=== PATIENT | female | born 1995 | race African-American/Black ===

== ENCOUNTER 2016-12-04 19:20 | Emergency (ER) | payer SELFPAY ==
[~2016-12-04] VITALS: Ht 160 cm; Wt 56.7 kg
[2016-12-04 19:20] VITALS: BP 129/76
[~2016-12-04 19:20] MED LIST: AMOX875T PO
[2016-12-04] MEDS ORDERED: LIDOCAINE/EPI/TETRACAINE TOPICAL GEL 3 ML. TP ONE ×2 (19:45)
[2016-12-04] MEDS ORDERED: LIDOCAINE 2%/EPI 1:100,000 20 ML VIAL. IJ ONE ×3 (19:45)
[2016-12-04] MEDS ORDERED: TRAM-48 PO (22:17)
--- NOTE | 2016-12-04 22:17 | PHYS DOC ---
Past Medical History Past Medical History: Migraines Past Surgical History: No Surgical History Alcohol Use: Occasionally Drug Use: Marijuana Adult General Chief Complaint Chief Complaint: LACERATION/AVULSION HPI HPI Patient is a 21 year old female who presents with right forearm laceration after punching a mirror during an ulceration with her partner. Review of Systems Review of Systems Constitutional: Denies fever or chills [] Musculoskeletal: Denies back pain or joint pain [] Integument: right forearm laceration Neurologic: Denies headache, focal weakness or sensory changes [] Current Medications Current Medications Current Medications Medications (Trade) Dose Ordered Sig/Dwight Start Time Stop Time Status Last Admin Dose Admin Diphtheria/ Tetanus/Acell Pertussis (Boostrix) 0.5 ml ONCE ONCE 12/04/16 22:30 12/04/16 22:31 Lidocaine/ Epinephrine (Let Topical) 3 ml 1X ONCE 12/04/16 19:45 12/04/16 19:51 DC 12/04/16 19:45 3 ML Lidocaine/ Epinephrine (Xylocaine 2%-Epi 1:100,000) 20 ml 1X ONCE 12/04/16 19:45 12/04/16 19:51 DC 12/04/16 19:45 20 ML Allergies Allergies Allergies Coded Allergies Type Severity Reaction Last Updated Verified No Known Drug Allergies 04/14/16 No Physical Exam Physical Exam Constitutional: Well developed, well nourished, no acute distress, non-toxic appearance. [] Skin: Right wrist ventral aspect with a laceration approximately 2X05 cm long, no obvious tendon involvement, right proximal ventral forearm with another laceration 9 cm x 4 cm wide, there is no obvious tendon involvement, right proximal dorsal forearm with another laceration 5 x 3 cm long, there is no obvious tendon involvement, full range of motion to the right forearm. Adequate radial medial and ulnar sensation to the right forearm. +2 right radial pulse. Cap refill less than 2 seconds the right fingers. Back: No tenderness, no CVA tenderness. [] Extremities: No tenderness, no cyanosis, no clubbing, ROM intact, no edema. [] Neurologic: Alert and oriented X 3, normal motor function, normal sensory function, no focal deficits noted. [] Psychologic: Affect normal, judgement normal, mood normal. [] Current Patient Data Vital Signs Vital Signs Date Time Temp Pulse Resp B/P (MAP) Pulse Ox O2 Delivery O2 Flow Rate FiO2 12/04/16 19:20 98.9 74 20 129/76 (93) 100 Room Air 98.9 EKG EKG [] Radiology/Procedures Radiology/Procedures Indication: Right forearm lacerations Procedure: The patient was placed in the appropriate position and anesthesia around the LET solution and later 2% of lidocaine with epinephrine, the wounds were explored for foreign objects, a couple glass pieces were removed from the laceration sites. The lacerations were cleaned with 500 ML of normal saline and Betadine. There were closed as follows 2 cm right wrist laceration- inner laceration was closed with 2 interrupted sutures using 3. 0 Vicryl, the exterior laceration was closed with 2 interrupted sutures using 4. 0 Prolene. 9 x 4 cm laceration on the right ventral proximal forearm- inner laceration was closed with 3 interrupted sutures using 3. 0 Vicryl, exterior laceration was closed with 19 interrupted sutures using 4. 0 Prolene. 5 x 3 cm laceration on the dorsal proximal forearm- inner laceration was closed with 3 interrupted sutures using 3. 0 Vicryl, exterior laceration was closed with 11 interrupted sutures using 4. 0 Prolene and Ethilon. All the wounds were covered with nonstick dressing and gauze. Patient tolerated the procedure very well. Course & Med Decision Making Course & Med Decision Making Pertinent Labs and Imaging studies reviewed. (See chart for details) Patient has multiple right forearm lacerations that were closed by me as noted in procedures. Wound care instructions as well as return precautions provided. Tetanus updated. Follow-up with the ED PCP in 7-10 days for suture. Right forearm x-rays interpreted by Dr. Fernandez were negative for any acute findings. Dragon Disclaimer Dragon Disclaimer This electronic medical record was generated, in whole or in part, using a voice recognition dictation system. Departure Departure Impression: Primary Impression: Laceration of right forearm Disposition: 01 HOME, SELF-CARE Condition: STABLE Referrals: NO PCP (PCP) Follow up with the primary care doctor or the emergency room in 7-10 days for suture removal Patient Instructions: Laceration Care, Adult Additional Instructions: You were seen with the right forearm laceration. Keep the area clean and dry. You can shower. Apply Neosporin to the laceration sites twice a day. Keep them covered if bleeding otherwise leave them open to air. Monitor the area for signs and symptoms of infection including but not limited to increased redness warmth yellow drainage from the area and return to the ED if they occur or see your own doctor. Come back to the emergency room or follow-up with your doctor in 7-10 days for stitches removal. Scripts Tramadol Hcl (ULTRAM) 50 Mg Tablet 1 TAB PO Q6HRS, #30 TAB Prov: ZANA DIAZ APRN 12/04/16 Problem Qualifiers Primary Impression: Laceration of right forearm Encounter type: initial encounter Qualified Codes: S51.811A - Laceration without foreign body of right forearm, initial encounter ZANA DIAZ APRN Dec 04, 2016 22:17
[2016-12-04] MEDS ORDERED: DIPHTH,PERTUSS(ACELL),TET TOX 0.5 ML DISP.SYRIN. VAX IM ONE (22:30)
--- NOTE | 2016-12-05 09:00 | RAD ---
Examination: 2 views of the right forearm History: History of lacerations after punching a glass Comparison: None available Findings The alignment of the radius, ulna grossly appears unremarkable. No obvious acute fracture identified. No obvious radiopaque foreign body is identified. Probable lacerations identified in the distal volar and proximal forearm region. Impression: 1. No acute osseous findings. 2. Probable lacerations identified in the distal volar and proximal forearm region.
== END 2016-12-04 22:25 | disposition home or self-care (01) ==
LOC: ER 20:20
DX: S51.811A Laceration without foreign body of right forearm, initial encounter (principal); G43.909 Migraine, unspecified, not intractable, without status migrainosus; W22.09XA Striking against other stationary object, initial encounter; Y93.89 Activity, other specified; Y99.8 Other external cause status; Y92.89 Other specified places as the place of occurrence of the external cause
CPT/HCPCS: 12035; 73090; 90471; 90715; 99284; J3490